=== PATIENT | female | born 1935 | race Caucasian/White ===

== ENCOUNTER 2022-01-12 12:49 | Emergency (ER) | payer OTHER ==
[~2022-01-12] VITALS: Ht 162.6 cm; Wt 56.7 kg
[~2022-01-12 12:49] MED LIST: ASPI81EC; ATOR10; METOPROLOL
[2022-01-12] MEDS ORDERED: ATORVASTATIN CA20 MG PO (17:15)
== END 2022-01-12 18:15 | disposition home or self-care (01) ==
LOC: ER 12:49
DX: S42.032A Displaced fracture of lateral end of left clavicle, initial encounter for closed fracture (principal); S01.01XA Laceration without foreign body of scalp, initial encounter; W10.9XXA Fall (on) (from) unspecified stairs and steps, initial encounter; Z79.82 Long term (current) use of aspirin; Z79.899 Other long term (current) drug therapy; Z88.8 Allergy status to other drugs, medicaments and biological substances
CPT/HCPCS: 70450; 73030; 99283-25

== ENCOUNTER 2022-01-25 12:39 | Inpatient (IN) | payer OTHER ==
[~2022-01-25] VITALS: Ht 160 cm; Wt 52.5 kg
[~2022-01-25 12:39] MED LIST changes: +ATORVASTATIN CA20 MG PO
[2022-01-25 13:10] LABS: Source, Urine Fem Cath
[2022-01-25 13:21] LABS: Hematocrit 33.1 % (33.0-51.0); Hemoglobin 10.9 g/dL (11.5-16.0); Mean Corpuscular HGB 29.9 pg (26.0-34.0); Mean Corpuscular HGB Conc 32.9 g/dL (31.5-36.5); Mean Corpuscular Volume 91 fL (80-100); Mean Platelet Volume 8.7 fL (9.1-12.4); Platelet Count 414 K/mm3 (150-400); RDW Coefficient Variation 12.3 % (11.7-14.2); RDW Standard Deviation 40.8 fL (35.1-46.3); Red Blood Cell Count 3.65 M/mm3 (3.80-5.20); White Blood Cell Count 29.93 K/mm3 (4.00-11.30)
[2022-01-25 13:23] LABS: Appearance, Urine Hazy (Clear); Bilirubin, Urine Neg (Neg); Blood, Urine 4+ (Neg); Color, Urine Yellow (P-Yellow); Glucose Qualitative, Urine Neg (Neg); Ketones, Urine Neg (Neg); Leukocyte Esterase, Urine 3+ (Neg); Nitrite, Urine Pos (Neg); Protein, Urine 3+ (Neg); Specific Gravity, Urine 1.015 (1.003-1.022); Urobilinogen, Urine NORM (Normal)
[2022-01-25 13:34] LABS: Bacteria Many /hpf; Squamous Epithelial Cells Few /hpf (Few); White Blood Cells, Urine 25-50 /hpf (0-5)
[2022-01-25 13:35] LABS: Amorphous Light (0-Heavy); Hyaline Casts 0-2 /lpf (0-2)
[2022-01-25 13:40] LABS: Albumin, Blood 2.6 g/dL (3.4-5.0); Albumin/Globulin Ratio 0.6 (0.8-1.8); Bilirubin, Total 0.7 mg/dL (0.1-1.0); Calcium, Blood 9.8 mg/dL (8.5-10.1); Creatinine, Blood 2.36 mg/dL (0.40-1.00); Globulin, Blood 4.2 g/dL (2.2-4.0); Potassium, Blood 4.1 mmol/L (3.5-5.5); Total Protein, Blood 6.8 g/dL (6.4-8.2)
[2022-01-25 14:18] LABS: BASOPHILS PERCENT MAN 0 % (0-2); EOSINOPHILS PERCENT MAN 0 % (0-6); LYMPHOCYTES ABSOLUTE MAN 0.29 K/mm3 (0.84-5.20); LYMPHOCYTES PERCENT MAN 1 % (21-46); MONOCYTES ABSOLUTE MAN 0.59 K/mm3 (0.16-1.47); MONOCYTES PERCENT MAN 2 % (4-13); NEUTROPHILS ABSOLUTE MAN 29.03 K/mm3 (1.96-9.15); SEG NEUTROPHILS PERCENT MAN 97 % (41-73); TOTAL CELLS COUNTED 100
[2022-01-25 16:15] LABS: Influenza A, PCR NEGATIVE (NEGATIVE); Influenza B, PCR NEGATIVE (NEGATIVE); Resp Syncytial Virus, PCR NEGATIVE (NEGATIVE); SARS-Cov-2 (COVID-19) PCR, MMC NEGATIVE (NEGATIVE)
--- NOTE | 2022-01-25 19:58 | NUR ---
174 RECEIVED PT TO RM 312 FROM ER VIA MARIA ESTHER. SLIDE TX TO BED D/T WEAKNESS. RECEIVED REPORT FROM HAROLDO TOMAS. PT TO ER D/T WKNESS, CONFUSSION, AND FEVER @ 104 PER EMS. PT ADMITTED WITH UTI. TYLENOL GIVEN WITH RESULTS. IVF'S AND IV ABX GIVEN IN ER WELL. PT IMPROVING. LACTIC WNL'S; SEE CHART. PER REPORT, PT IS NORMALLY AMBULATORY AND CONTINENT OF BOWEL AND BLADDER. RENAL US TO BE DONE IN AM. PER HAROLDO, PT FELL AT HOME 2 WEEKS AGO AND FX L CLAVICAL. PT WEARING SLING WHEN UP AND FOR COMFORT WHILE IN BED. A&O, PLEASANT AND CO-OP. CALL LT IN REACH. REPORT GIVEN TO GREG TOMAS.
--- NOTE | 2022-01-26 04:44 | NUR ---
SUMMARY PT REMAINS AFEBRILE, VSS, A&O 3. PT HAS BEEN AWAKE MOST OF THE NIGHT. PT IS STATING SHE "WAS SENT TO THE WRONG HOSPITAL". SHE THEN MENTIONED INSURANCE. IT IS UNCLEAR OF WHETHER THE PT WAS CONFUSED OR UNABLE TO COMMUNICATE PROPERLY. SHE IS REFUSING ALL TESTS UNTIL SHE CAN 'SPEEK WITH THE DOCTOR'. BED ALARM IS ON FOR SAFETY, CALL LIGHT IN REACH, [facility]
[2022-01-26 10:33] LABS: BASOPHILS ABSOLUTE AUTO 0.13 K/mm3 (0.00-0.23); BASOPHILS PERCENT AUTO 1 % (0-2); EOSINOPHILS ABSOLUTE AUTO 0.11 K/mm3 (0.00-0.68); EOSINOPHILS PERCENT AUTO 1 % (0-6); Hemoglobin 9.2 g/dL (11.5-16.0); IMMATURE GRAN ABSOLUTE AUTO 0.12 K/mm3 (0.00-0.10); IMMATURE GRAN PERCENT AUTO 1 % (0-1); LYMPHOCYTES ABSOLUTE AUTO 1.14 K/mm3 (0.84-5.20); LYMPHOCYTES PERCENT AUTO 5 % (21-46); MONOCYTES PERCENT AUTO 4 % (4-13); Mean Corpuscular HGB 29.4 pg (26.0-34.0); Mean Corpuscular HGB Conc 31.7 g/dL (31.5-36.5); Mean Corpuscular Volume 93 fL (80-100); NEUTROPHILS PERCENT AUTO 90 % (41-73); Platelet Count 328 K/mm3 (150-400); RDW Coefficient Variation 12.8 % (11.7-14.2); RDW Standard Deviation 43.7 fL (35.1-46.3); Red Blood Cell Count 3.13 M/mm3 (3.80-5.20)
[2022-01-26 10:53] LABS: Magnesium, Blood 1.9 mg/dL (1.6-2.4)
[2022-01-26 10:54] LABS: Albumin, Blood 2.3 g/dL (3.4-5.0); Albumin/Globulin Ratio 0.6 (0.8-1.8); Bilirubin, Total 0.5 mg/dL (0.1-1.0); Bun/Creatinine Ratio 15.4 (12.0-20.0); Calcium, Blood 9.6 mg/dL (8.5-10.1); Creatinine, Blood 2.21 mg/dL (0.40-1.00); Globulin, Blood 3.6 g/dL (2.2-4.0); Potassium, Blood 4.3 mmol/L (3.5-5.5); Total Protein, Blood 5.9 g/dL (6.4-8.2)
--- NOTE | 2022-01-26 13:24 | NUR ---
PT REFUSED TESTS REFERRED THIS AM. AFTER DR CONSULT, AND PT AGREED TESTS COULD BE ADMINISTERED NEEDED.
--- NOTE | 2022-01-26 17:36 | NUR ---
SHIFT SUMMARY- PT REFUSED ALL TESTING PROCEDURES THIS AM. PT DISCUSSED PLAN WITH AND WITH RN DISCUSSION COMPLIED WITH ALL CARE FOR TODAY. ON BOARD FOR TREATMENT. PT UP TO COMMOND VOIDING URINE ON OWN, SEE EMAR. PT VSS. NO C/O PAIN DURING SHIFT. PT RESTING COMFORTABLY WITH CALL LIGHT IN REACH, SIDE RAILS UP, AND BED ALARM ENGAGED.
--- NOTE | 2022-01-27 04:43 | NUR ---
SHIFT SUMMARY: PT IS A/OX2. SHE IS CONFUSED AND IMPULSIVE, BUT IS EASILY REDIRECTABLE. D/T INCREASED WEAKNESS SHE IS A 2 PA/GAIT, STAND AND PIVOT TO THE BSC. HER LEFT ARM REMAINS IN A SLING. SHE WAS STARTED ON LEVAQUIN IN ADDITION TO THE ROCEPHIN. THE BED IS IN THE LOWEST POSITION AND THE ALARM IS SET FOR SAFETY. THE BED IS A DIFFERENT TYPE AND THE ALARM CAN BE DIFFICULT TO HEAR.
[2022-01-27 05:15] LABS: BASOPHILS ABSOLUTE AUTO 0.07 K/mm3 (0.00-0.23); BASOPHILS PERCENT AUTO 0 % (0-2); EOSINOPHILS ABSOLUTE AUTO 0.06 K/mm3 (0.00-0.68); EOSINOPHILS PERCENT AUTO 0 % (0-6); Hematocrit 29.4 % (33.0-51.0); Hemoglobin 9.4 g/dL (11.5-16.0); IMMATURE GRAN PERCENT AUTO 1 % (0-1); LYMPHOCYTES ABSOLUTE AUTO 0.64 K/mm3 (0.84-5.20); LYMPHOCYTES PERCENT AUTO 3 % (21-46); MONOCYTES ABSOLUTE AUTO 0.59 K/mm3 (0.16-1.47); MONOCYTES PERCENT AUTO 3 % (4-13); Mean Corpuscular HGB 30.1 pg (26.0-34.0); Mean Corpuscular Volume 94 fL (80-100); NEUTROPHILS ABSOLUTE AUTO 17.29 K/mm3 (1.96-9.15); NEUTROPHILS PERCENT AUTO 92 % (41-73); Platelet Count 303 K/mm3 (150-400); RDW Coefficient Variation 12.8 % (11.7-14.2); RDW Standard Deviation 43.8 fL (35.1-46.3); Red Blood Cell Count 3.12 M/mm3 (3.80-5.20); White Blood Cell Count 18.75 K/mm3 (4.00-11.30)
[2022-01-27 05:30] LABS: Albumin, Blood 2.1 g/dL (3.4-5.0); Albumin/Globulin Ratio 0.6 (0.8-1.8); Bilirubin, Total 0.4 mg/dL (0.1-1.0); Bun/Creatinine Ratio 14.2 (12.0-20.0); Calcium, Blood 9.6 mg/dL (8.5-10.1); Creatinine, Blood 1.97 mg/dL (0.40-1.00); Globulin, Blood 3.7 g/dL (2.2-4.0); Phosphorus, Blood 2.7 mg/dL (2.5-4.9); Potassium, Blood 4.3 mmol/L (3.5-5.5); Total Protein, Blood 5.8 g/dL (6.4-8.2)
--- NOTE | 2022-01-27 16:11 | NUR ---
PT WITH PERIODS OF CONFUSION. @1500 PT BECAME VERY ANXIOUS GETTING OUT OF BED AND STATING THAT "FAMILY WANTED TO HARM HER AND TAKE HER DOG." AFTER REDIRECTING PT SHE EXPLAINED SHE FELT HER MENTAL HEALTH WAS SUFFERING. SHORT AFTER SON CALLED TO SPEAK WITH HER. PT THEN CALMED AND IS NOW RESTING.
--- NOTE | 2022-01-27 18:18 | NUR ---
SHIFT SUMMARY- PT CONFUSED AT TIMES DURING SHIFT BUT REDIRECTABLE. PT IMPULSIVE AND ATTEMPTS TO GET OUT OF BED OFTEN, BED ALARM IS QUIET BUT ON. NO C/O PAIN. FAMILY AT BEDSIDE. PT ALLOWED ALL MEDS AND CARE NEEDED TODAY. PTRESTING COMFORTABLY WITH CALL LIGHT IN REACH AND SIDERAIL UP, WITH BED ALARM ENGAGED.
--- NOTE | 2022-01-28 03:10 | NUR ---
PT WAS CALM AND COOPERATIVE WHILE FAMILY IN ROOM. ONCE FAMILY LEFT FOR THE NIGHT SHE REFUSED VITALS. MORE THAN FIVE ATTEMPTS WERE MADE TO CONTACT , BUT D/T TIME HE WAS ALREADY HOME (POSSIBLY ASLEEP). PT VERBALIZED SHE WOULD STAY IN BED; ALARM WAS SET AND RN WENT TO SEE OTHER PATIENTS. SHE SET OFF THE ALARM AND WAS ABLE TO GET OOB. SHE REFUSED TO GET BACK INTO BED AND STARTED SCREAMING THAT WE'RE KEEPING HER PRISONER. SHE WAS EVENTUALLY ESCORTED BACK TO THE ROOM AND A DAUGHTER CALLED BACK. THEY WERE INFORMED OF HER NOT COOPERATING AND THE AGREED TO COME BACK AND STAY WITH HIS . DUE TO HER CONFUSION THIS SEEMED LIKE THE BEST APPROACH TO DE-ESCULATE THE SITUATION WITHOUT USING RESTRAINTS. SHE IS NOW RESTING AND THE ALARM IS SET FOR HER SAFETY. SHE DID PULL HER IV. WAS NOTIFIED AND SAID IT WAS OKAY TO KEEP THE LINE OUT FOR THE NIGHT. THIS INCIDENT WILL BE PASSED ALONG TO THE DAYSHIFT NURSE.
--- NOTE | 2022-01-28 06:18 | NUR ---
SHIFT SUMMARY: PT IS A/OX1. SHE REMAINS IRRITABLE AND NON-COMPLIANT WITH ALL CARE. HER CONVERSATION IS NON-SENSICAL AND THE STAFF ARE UNABLE TO DO ANY CARE, EVEN WITH THE ASSISTANCE OF THE AT BEDSIDE. SHE DID NOT LET THE PHLEB DO BLOOD WORK THIS MORNING. SHE REPEATED THE ONLY PERSON SHE'LL LISTEN TO IS A "SPECIALIST". THE RN AND SEPARATOR TENDER WILL CONTINUE TO DO FREQUENT MONITORING AND THE ALARM IS SET FOR PATIENT SAFETY.
[2022-01-28 11:57] LABS: BASOPHILS ABSOLUTE AUTO 0.06 K/mm3 (0.00-0.23); BASOPHILS PERCENT AUTO 1 % (0-2); EOSINOPHILS ABSOLUTE AUTO 0.06 K/mm3 (0.00-0.68); EOSINOPHILS PERCENT AUTO 1 % (0-6); Hematocrit 31.1 % (33.0-51.0); IMMATURE GRAN ABSOLUTE AUTO 0.05 K/mm3 (0.00-0.10); IMMATURE GRAN PERCENT AUTO 1 % (0-1); LYMPHOCYTES ABSOLUTE AUTO 0.81 K/mm3 (0.84-5.20); LYMPHOCYTES PERCENT AUTO 8 % (21-46); MONOCYTES ABSOLUTE AUTO 0.74 K/mm3 (0.16-1.47); MONOCYTES PERCENT AUTO 7 % (4-13); Mean Corpuscular HGB 29.2 pg (26.0-34.0); Mean Corpuscular HGB Conc 32.2 g/dL (31.5-36.5); Mean Corpuscular Volume 91 fL (80-100); Mean Platelet Volume 9.1 fL (9.1-12.4); NEUTROPHILS ABSOLUTE AUTO 9.14 K/mm3 (1.96-9.15); NEUTROPHILS PERCENT AUTO 84 % (41-73); Platelet Count 310 K/mm3 (150-400); RDW Coefficient Variation 12.7 % (11.7-14.2); RDW Standard Deviation 42.5 fL (35.1-46.3); Red Blood Cell Count 3.43 M/mm3 (3.80-5.20); White Blood Cell Count 10.86 K/mm3 (4.00-11.30)
[2022-01-28 12:17] LABS: Percent Saturation 27.8 % (15.0-50.0)
[2022-01-28 12:36] LABS: Calcium, Blood 9.8 mg/dL (8.5-10.1); Creatinine, Blood 1.93 mg/dL (0.40-1.00)
--- NOTE | 2022-01-28 17:03 | NUR ---
SHIFT SUMMARY- PT CONFUSED OFTEN AND GETTING OOB. PT UNCLEAR OF SURROUNDINGS AND HER AGE. PT REORIENTS WHEN FAMILY VISITS BUT IS STILL NON-SENISCAL IN THEIR PRESENTS. PT MOOD IS HAPPY/ EASY GOING WITH FAMILY AT BEDSIDE. PT TRANSFERED TO [facility] FOR CLOSER WATCH AND CARE. PT FAMILY NOTIFIED OF CHANGE IN ROOM. ALL PT'S BELONGINGS WITH TRANSFER BY MARIA ESTHER TO NEW LOCATION. GAVE REPORT TO NURSE IN ROOM 352.
--- NOTE | 2022-01-28 18:42 | NUR ---
1615- PT TRANSFERRED FROM ROOM 312 TO ROOM 352 FOR CLOSER OBSERVATION AND FALL PREVENTION. ORIENTED TO ROOM SET UP AND SAFETY, NOT TO GET UP UNATTENDED. BED ALARM SET.
--- NOTE | 2022-01-28 18:45 | NUR ---
SUMMARY- PT ALRET TO SELF AND FAMILY. INTERACTS WITH STAFF APPROPRIATELY. PT IS FORGETFUL AND NEEDS REMINDERS TO NOT GET UP ALONE. PT WORKED WITH PHYSICAL THERAPY AND WAS ABLE TO AMBULATE IN ROOM WITH SBA. DENIED DIZZINESS. PT TOLERATED A GEN DIET. L ARM IN SLING, DENIED PAIN IN THAT ARM. MEDICATED WITH SEROQUIL 1800. PT HAS BEEN CALM AND EASILY DIRECTABLE. AT BEDSIDE THIS EVENING FOR ABOUT AN HOUR. GAVE SON A UPDATE ON THE PHONE- HE HAD A STRONG SLUR AND LIKELY DRUNK. REPORTED ALL TO NOC RN
--- NOTE | 2022-01-29 05:29 | NUR ---
SHIFT SUMMARY: PATIENT HAS NO COMPLIANTS, VSS. PATIENT DOES NOT USE CALL MAGANA FOR ASSIST OOB, BED ALARM IS ON. HAS STAYED THE NIGHT, SLEEPING AT BEDSIDE AND PROVIDING EMOTIONAL SUPPORT. DENIES PAIN OR DISCOMFORT.
[2022-01-29 08:58] LABS: BASOPHILS ABSOLUTE AUTO 0.07 K/mm3 (0.00-0.23); BASOPHILS PERCENT AUTO 1 % (0-2); EOSINOPHILS ABSOLUTE AUTO 0.18 K/mm3 (0.00-0.68); EOSINOPHILS PERCENT AUTO 2 % (0-6); Hematocrit 31.5 % (33.0-51.0); Hemoglobin 9.9 g/dL (11.5-16.0); IMMATURE GRAN ABSOLUTE AUTO 0.03 K/mm3 (0.00-0.10); IMMATURE GRAN PERCENT AUTO 0 % (0-1); LYMPHOCYTES PERCENT AUTO 14 % (21-46); MONOCYTES ABSOLUTE AUTO 0.74 K/mm3 (0.16-1.47); MONOCYTES PERCENT AUTO 8 % (4-13); Mean Corpuscular HGB 29.4 pg (26.0-34.0); Mean Corpuscular HGB Conc 31.4 g/dL (31.5-36.5); Mean Corpuscular Volume 94 fL (80-100); Mean Platelet Volume 9.2 fL (9.1-12.4); NEUTROPHILS ABSOLUTE AUTO 6.66 K/mm3 (1.96-9.15); NEUTROPHILS PERCENT AUTO 75 % (41-73); Platelet Count 273 K/mm3 (150-400); RDW Coefficient Variation 12.9 % (11.7-14.2); RDW Standard Deviation 43.9 fL (35.1-46.3); Red Blood Cell Count 3.37 M/mm3 (3.80-5.20); White Blood Cell Count 8.88 K/mm3 (4.00-11.30)
[2022-01-29 09:21] LABS: Bun/Creatinine Ratio 11.9 (12.0-20.0); Creatinine, Blood 1.93 mg/dL (0.40-1.00); Potassium, Blood 4.2 mmol/L (3.5-5.5)
--- NOTE | 2022-01-29 18:15 | NUR ---
SUMMARY- PT A/O TO SELF, FAMILY AND PLACE. SHE GOT UP WITH PT/OT TODAY USING WALKER, SBA, TOLERATES ACTIVITY WELL. UP IN CHAIR FOR MEALS. TOLERATING FOOD AND FLUIDS. TOOK SLING OFF TODAY, ENCOURAGING ROM TO L ARM. DENIES PAIN OF L CLAVICLE. PLAN FOR PT TO GO LIKELY TO [facility] HOME, HER DAUGHTERS ARE ARRANGING HOME. WILL REPORT TO NOC SHIFT.
[2022-01-30 08:51] LABS: BASOPHILS ABSOLUTE AUTO 0.08 K/mm3 (0.00-0.23); BASOPHILS PERCENT AUTO 1 % (0-2); EOSINOPHILS PERCENT AUTO 2 % (0-6); Hematocrit 30.7 % (33.0-51.0); Hemoglobin 9.6 g/dL (11.5-16.0); IMMATURE GRAN ABSOLUTE AUTO 0.04 K/mm3 (0.00-0.10); IMMATURE GRAN PERCENT AUTO 0 % (0-1); LYMPHOCYTES ABSOLUTE AUTO 0.86 K/mm3 (0.84-5.20); LYMPHOCYTES PERCENT AUTO 9 % (21-46); MONOCYTES ABSOLUTE AUTO 0.72 K/mm3 (0.16-1.47); MONOCYTES PERCENT AUTO 7 % (4-13); Mean Corpuscular HGB 29.4 pg (26.0-34.0); Mean Corpuscular HGB Conc 31.3 g/dL (31.5-36.5); Mean Corpuscular Volume 94 fL (80-100); Mean Platelet Volume 9.5 fL (9.1-12.4); NEUTROPHILS PERCENT AUTO 81 % (41-73); Platelet Count 308 K/mm3 (150-400); RDW Coefficient Variation 12.8 % (11.7-14.2); Red Blood Cell Count 3.26 M/mm3 (3.80-5.20)
--- NOTE | 2022-01-30 09:00 | NUR ---
PT QUITE PLEASANT COOP TO FAMILY AND SELF. QUIET AND SEEMS TIMMID. DENIES ANY PAIN. AT BEDSIDE AT THIS TIME. H/R REG, NO MURMUR NOTED. NO TELE. LUNGS CLEAR, RESP EASY, UNLABORED. ON RA. BT X4 LAST BM 2 DAYS PER PT. VOIDS 1 ASST TO BATHROOM. FWW. PT STATES WILL NEED ANOTHER DAY TO HEAL BEFORE GOES HOME. ON PO ABX AT THIS TIME. BED IN LOW POSITION, CALL LITE IN REACH, CALLS APROP
[2022-01-30 09:13] LABS: Bun/Creatinine Ratio 11.9 (12.0-20.0); Calcium, Blood 9.8 mg/dL (8.5-10.1); Creatinine, Blood 1.77 mg/dL (0.40-1.00); Potassium, Blood 4.3 mmol/L (3.5-5.5)
--- NOTE | 2022-01-30 19:31 | NUR ---
PT VERY PLEASANT TODAY. DID WALK WITH PT TODAY. IN THIS AM AND AGAIN THIS TIMOTEO. SHE DID REFUSE LOVENOX THIS AM. VSS. PT STATES THIS AM THAT SHE NOT FEEL GOOD TO GO HOME TODAY. MAYBE IN DAY OR TWO. NO NEW CONCERNS NOTED. TODAY. BED IN LOW POSITION, CALL LITE IN REACH, CALLS APPROP
--- NOTE | 2022-01-31 06:04 | NUR ---
WELDER HELPER SUMMARY ADMITTED FOR UTI AND SEPSIS. SHE IS A FULL CODE. SHE HAS A HISTORY OF DEMENTIA AND IS ALERT AND ORIENTED TO SELF AND BUT IS UNSURE WHY SHE IS HERE. THE PATIENT HAS SOME LEFT CLAVICLE PAIN FROM PREVIOUS FRACTURE. THE PATIENT HAS REMAINED CONTINENT THROUGHOUT THE SHIFT AND DID NOT USE HER CALL LIGHT. SHE REFUSED A FEW POSITION CHANGES, REQUESTING TO BE LEFT ALONE. SHE DENIED ANY COMPLAINTS OF PAIN.
--- NOTE | 2022-01-31 17:48 | NUR ---
SHIFT SUMMARY NO ACUTE EVENTS. PTN CONTINENT, UP TO BATHROOM X1. SLING TO LEFT ARM TO SUPPORT SHOULDER/LEFT CLAVICLE. PTN DENIES PAIN. PTN ABLE TO TELL STORY OF HOW SHE INJUURED LEFT SHOULDER. PTN DECONDITIONED, WORKED WITH PT AND MADE SOME PROGRESS. POSSIBLE DISCHARGE TOMORROW.
--- NOTE | 2022-02-01 04:11 | NUR ---
SHIFT SUMMARY PT HAS BEEN PLEASANT AND COOPERATIVE. SLEPT MUCH OF THE NIGHT. AMBULATED TO THE RESTROOM WITH LITTLE ASSISTANCE. DENIES ANY PAIN, EVEN TO LEFT CLAVICLE. LEFT CLAVICLE REMAINED IN THE SLING. PT DENIES ANY PAIN OR BURNING WITH URINATION. NO ACUTE CHANGES THIS EVENING. VITAL SIGNS STABLE.
--- NOTE | 2022-02-01 07:46 | NUR ---
ASSUMED CARE: PT RESTING QUIETLY AT THIS TIME. NO ACUTE NEEDS OR CONCERNS IDENTIFIED.
--- NOTE | 2022-02-01 09:05 | NUR ---
CALL TO DR CRESPO TO LET HIM KNOW THAT PT'S FAMILY HAS ARRIVED. MESSAGE LEFT ON VOICE MAIL
--- NOTE | 2022-02-01 09:34 | NUR ---
GOT IN TOUCH WITH DR CRESPO AND INFORMED HIM THAT FAMILY IS HERE. STATES HE WILL BE TO ROOM SOON ABLE. FAMILY MADE AWARE
[2022-02-01] MEDS ORDERED: CEFP200 PO (11:23)
[2022-02-01] MEDS ORDERED: QUETIAPINE FUMA50 M3 PO (11:23)
[2022-02-01] MEDS ORDERED: QUET25 PO (11:24)
--- NOTE | 2022-02-01 16:19 | NUR ---
PT'S STATED THAT PHARMACY WAS UNABLE TO FILL PRESCRIPTION AT THAT TIME AND FOR HIM TO COME BACK AT 3PM. RN FAXED PRESCRIPTIONS TWICE. ASKED THAT PRESCRIPTION BE SENT TO ANOTHER PHARMACY WELL. SENT TO [facility]. LEFT TO COLLECT PRESCRIPTION AND [facility] CALLED TO VERIFY PRESCRIPTIONS. PRESCRIPTIONS VERIFIED OVER THE PHONE. IT HAS BEEN NEARLY 2 HOURS SINCE PT'S LEFT AND NO FURTHER WORD FROM HIM TO IF HE WAS ABLE TO GET MEDS. CALL TO PHONE NUMBER IN CHART AND FAMILY ANSWERED HOME PHONE. STATED THEY HAD NOT HEARD FROM HIM. THEY GAVE RN CELL PHONE NUMBER AND RN ATTEMPTED TO CALL CELL PHONE TO DETERMINE IF HE NEEDED MEDS SENT ELSEWHERE. MESSAGE LEFT. NO RETURN CALL OF YET
--- NOTE | 2022-02-01 16:42 | NUR ---
PT'S RETURNED WITH PRESCRIPTIONS IN HAND. STATED THEY WERE READY TO GO HOME. [employer] ASSISTED IN GETTING PT DRESSED AND UP IN WHEEL CHAIR. [employer] ESCORTED THEM OUT VIA WHEEL CHAIR. IV ALREADY OUT PREVIOUSLY. DENIED FURTHER QUESTIONS OR CONCERNS.
== END 2022-02-01 16:33 | disposition home health service (06) | DRG 871 ==
LOC: ER 12:39 → MEDS 16:11
PROVIDERS: Emergency Medicine; Hospitalist; Student in an Organized Health Care Education/Training Program; ADMIT Internal Medicine
DX: A41.51 Sepsis due to Escherichia coli [E. coli] (principal); G92.8 Other toxic encephalopathy; N18.4 Chronic kidney disease, stage 4 (severe); N12 Tubulo-interstitial nephritis, not specified as acute or chronic; N17.9 Acute kidney failure, unspecified; E87.2 Acidosis; R65.20 Severe sepsis without septic shock; Z20.822 Contact with and (suspected) exposure to COVID-19; B96.20 Unspecified Escherichia coli [E. coli] as the cause of diseases classified elsewhere; I73.9 Peripheral vascular disease, unspecified; D72.829 Elevated white blood cell count, unspecified; I95.9 Hypotension, unspecified; E21.3 Hyperparathyroidism, unspecified; F03.90 Unspecified dementia, unspecified severity, without behavioral disturbance, psychotic disturbance, mood disturbance, and anxiety; R45.1 Restlessness and agitation; D75.838 Other thrombocytosis; I12.9 Hypertensive chronic kidney disease with stage 1 through stage 4 chronic kidney disease, or unspecified chronic kidney disease; D63.1 Anemia in chronic kidney disease; E78.5 Hyperlipidemia, unspecified; Z98.890 Other specified postprocedural states; Z90.710 Acquired absence of both cervix and uterus; Z90.722 Acquired absence of ovaries, bilateral; Z90.49 Acquired absence of other specified parts of digestive tract; Z98.41 Cataract extraction status, right eye; Z98.42 Cataract extraction status, left eye; Z88.6 Allergy status to analgesic agent; Z79.82 Long term (current) use of aspirin; Z79.899 Other long term (current) drug therapy
CPT/HCPCS: 0241U; 36415; 71045; 76770; 80048; 80053; 81001; 82607; 82728; 82746; 83540; 83550; 83605; 83735; 83880; 84100; 85025; 87040; 87077; 87086; 87186; 92523; 93005; 93010; 96374; 97110; 97116; 97161; 97166; 97530; 97535; 99285-25; A9270; J0692; J0696; J1650; J1956; J7030; P9612

== ENCOUNTER → 2022-03-02 | Outpatient (CLI) | payer OTHER ==
[~2022-03-02] MED LIST changes: +CEFP200 PO; +QUET25 PO; +QUETIAPINE FUMA50 M3 PO
== END ==
LOC: LAB 15:37 → LAB SHORT 15:37
DX: L03.039 Cellulitis of unspecified toe (principal)
CPT/HCPCS: 87070; 87205